=== PATIENT | male | born 1955 | race Caucasian/White ===

== ENCOUNTER → 2021-07-11 | Outpatient (CLI) | payer MEDICARE ==
[~2021-07-11] MED LIST: ASPI325T6 PO; DIABETA 5MG5 MG/TAB PO; LANTUS100 U/ML SQ; LIPITOR 80MG80 MG PO; PLAVIX 75MG TAB75 MG PO; PRILOSEC 20MG20 MG PO; TOPROL XL 50MG50 MG PO; VITAMIN D31000 IU PO; ZESTRIL 5MG5 MG PO
[2021-07-11 19:57] LABS: COLLECTION METHOD CLEAN CATCH
[2021-07-11 20:06] LABS: PH 5 (5-8); SQUAMOUS EPITHELIAL None Seen /hpf (0-10); URINE APPEARANCE Cloudy (CLEAR/HAZY); URINE BACTERIA Rare /hpf (NONE SEEN); URINE BILIRUBIN Negative (NEGATIVE); URINE BLOOD Negative (NEGATIVE); URINE COLOR Yellow (YELLOW); URINE GLUCOSE 2+ (NEGATIVE); URINE KETONE Negative (NEGATIVE); URINE LEUKOCYTE ESTERASE 2+ (NEGATIVE); URINE NITRATE Negative (NEGATIVE); URINE PROTEIN(semi-quant) 2+ (NEGATIVE); URINE UROBILINOGEN Negative (NEGATIVE)
== END ==
LOC: ZLAB.STJ 19:00
PROVIDERS: Internal Medicine
DX: N39.0 Urinary tract infection, site not specified (principal)

== ENCOUNTER 2022-07-16 13:14 | Inpatient (IN) | payer MEDICARE ==
[2022-07-16] VITALS (567 sets, daily range): BP systolic 154–186; BP diastolic 67–83; PULSE 68–74; TEMP 97.9–99.3; O2SAT 74–100
[~2022-07-16] VITALS: Ht 182.9 cm; Wt 79.3 kg
[2022-07-16 14:19] LABS: BASO # 0.1 K/mm3 (0.0-0.2); BASO % 0.8 % (0.0-2.0); EOS # 0.3 K/mm3 (0.0-0.7); GRAN # 8.3 K/mm3 (1.4-6.5); GRAN % 79.6 % (42.2-75.2); HEMATOCRIT 28.3 % (42.0-52.0); HEMOGLOBIN 9.2 g/dl (13.5-18.0); LYMPH # 0.8 K/mm3 (1.2-3.4); LYMPH % 7.9 % (20.0-51.0); MEAN CELL VOLUME 88 fl (80.0-100.0); MEAN CORPUSCULAR HEMOGLOBIN 29 pg (27-31); MEAN CORPUSCULAR HGB CONC 33 g/dl (33.0-37.0); MEAN PLATELET VOLUME 11.5 fl (7.4-10.4); MONO # 0.9 K/mm3 (0.1-0.6); MONO % 8.3 % (1.7-9.3); PLATELET COUNT 179 K/mm3 (130-400); RED BLOOD COUNT 3.22 M/mm3 (4.20-5.60); REDCELL DISTRIBUTION WIDTH-CV 15.1 % (11.5-14.5)
[2022-07-16] MEDS ORDERED: FLOMAX 0.40.4 MG/CAP PO (15:36)
[2022-07-16] MEDS ORDERED: WELLBUTRIN SR150 M1 PO (15:38)
[2022-07-16] MEDS ORDERED: ASPIRIN 81M81 MG/TA2 PO (15:38)
[2022-07-16] MEDS ORDERED: NEURONTIN400 MG/CAP PO (15:39)
[2022-07-16] MEDS ORDERED: ULTRAM 50MG TAB50 MG PO (15:39)
[2022-07-16] MEDS ORDERED: VITAMIN D31000 I1 PO (15:40)
[2022-07-16] MEDS ORDERED: PEPCID 20MG TAB20 MG PO (15:40)
[2022-07-16] MEDS ORDERED: ZYRTEC 10MG10 MG PO (15:41)
[2022-07-16] MEDS ORDERED: VITAMINC1000TA (15:41)
[2022-07-16] MEDS ORDERED: HUMALOG100 U/ML SQ (15:42)
[2022-07-16] MEDS ORDERED: BASAGLAR K100 UNIT/1 SQ (15:42)
[2022-07-16] MEDS ORDERED: TUMS500 MG (15:43)
[2022-07-16 15:45] LABS: ALBUMIN 2.6 gm/dL (3.4-4.8); BILIRUBIN,TOTAL 0.3 mg/dL (0.2-1.2); CALCIUM 8.5 mg/dL (8.4-10.2); CREATININE, serum 3.05 mg/dL (0.72-1.25); POTASSIUM 5.1 mmol/L (3.5-4.5); TOTAL PROTEIN 6.1 gm/dL (6.2-8.1)
[2022-07-16 16:39] LABS: PH 6.5 (5.0-8.5); URINE APPEARANCE Cloudy (CLEAR/HAZY); URINE COLOR Red (YELLOW); URINE GLUCOSE 3+ (NEGATIVE); URINE KETONE 1+ (NEGATIVE); URINE NITRATE Positive (NEGATIVE); URINE PROTEIN(semi-quant) 3+ (NEGATIVE)
[2022-07-16 16:40] LABS: COLLECTION METHOD CATHETER; URINE BLOOD 3+ (NEGATIVE)
[2022-07-16 16:44] LABS: SQUAMOUS EPITHELIAL None Seen /hpf (0-10); URINE BACTERIA None Seen /hpf (NONE SEEN); URINE RBC >50 /hpf (0-2)
[2022-07-16 21:02] LABS: HEMATOCRIT 30.8 % (42.0-52.0)
[2022-07-17] VITALS (1060 sets, daily range): BP systolic 71–167; BP diastolic 47–94; PULSE 53–70; TEMP 97.8–98.3; O2SAT 75–100
[2022-07-17 03:09] LABS: HEMATOCRIT 28.8 % (42.0-52.0); HEMOGLOBIN 9.3 g/dl (13.5-18.0)
[2022-07-17 06:00] LABS: BASO # 0.1 K/mm3 (0.0-0.2); BASO % 0.8 % (0.0-2.0); EOS # 0.5 K/mm3 (0.0-0.7); EOS % 4.4 % (0.0-4.0); GRAN # 8.6 K/mm3 (1.4-6.5); GRAN % 77.2 % (42.2-75.2); LYMPH % 9.4 % (20.0-51.0); MEAN CELL VOLUME 90 fl (80.0-100.0); MEAN CORPUSCULAR HGB CONC 32 g/dl (33.0-37.0); MEAN PLATELET VOLUME 11.3 fl (7.4-10.4); MONO # 0.9 K/mm3 (0.1-0.6); MONO % 7.9 % (1.7-9.3); PLATELET COUNT 194 K/mm3 (130-400); RED BLOOD COUNT 3.22 M/mm3 (4.20-5.60); REDCELL DISTRIBUTION WIDTH-CV 14.9 % (11.5-14.5)
[2022-07-17 06:06] LABS: HEMATOCRIT 29.1 % (42.0-52.0); HEMOGLOBIN 9.2 g/dl (13.5-18.0); MEAN CORPUSCULAR HEMOGLOBIN 29 pg (27-31)
[2022-07-17 06:19] LABS: CALCIUM 8.8 mg/dL (8.4-10.2); CREATININE, serum 2.86 mg/dL (0.72-1.25); MAGNESIUM 1.7 mg/dL (1.6-2.6); POTASSIUM 4.7 mmol/L (3.5-4.5)
[2022-07-17 09:10] LABS: HEMATOCRIT 29.1 % (42.0-52.0); HEMOGLOBIN 9.5 g/dl (13.5-18.0)
--- NOTE | 2022-07-17 09:49 | NUR ---
SW met with patient to complete intake. Patient reports that he lives at home with his Chapis ([phone]) in [place]. 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 Patient denies any home oxygen needs. PCP is Dr. Schreiber and they utilize [facility] in [place]. Phone call made to the Chapis. She states that the patient is indpendent with his ADL's and has had no issues up until this point leaving him at home alone despite his dx of Dementia. She works in , but often checks in on him and gets him set up for his day prior to leaving for work. Chapis confirms that they do not have any home health services at this time. Chapis also states that the patient does have a DPOA-HC established, listing her as the primary agent and their children as secondary agents. Chapis states that their son is planning on coming to stay with the patient for a few weeks at their home after this discharge. PT/OT ordered and will await their evals.
[2022-07-17 15:47] LABS: HEMATOCRIT 27.6 % (42.0-52.0); HEMOGLOBIN 8.9 g/dl (13.5-18.0)
--- NOTE | 2022-07-17 16:18 | NUR ---
1610 CALL TO NICK VARMA UPDATING ON RECORDS RECIEVED FROM PCP ON LABS REQUESTED. VERBALLY TOLD NICK VALUES. NICK STATED TO PLACE RECORDS ON PT CHART. NO NEW ORDERS.
[2022-07-17 17:41] LABS: CALCIUM 8.6 mg/dL (8.4-10.2); CREATININE, serum 2.89 mg/dL (0.72-1.25); POTASSIUM 4.8 mmol/L (3.5-4.5)
--- NOTE | 2022-07-17 17:46 | NUR ---
1745 REPORT TO [facility]. PT MOVING TO ROOM 323.
--- NOTE | 2022-07-17 18:05 | NUR ---
PATIENT ARRVIED FROM ICU IN STABLE CONDITION. PATIENT DENIES ANY NEEDS OR COMPLAINTS AT THIS TIME. THIS RN ONLY ASSISTED TO SETTLE PATIENT. PATIENT ANSWERS ORIENTATION QUESTIONS CORRECTLY, AND APPEARS TO BE IN A PLEASANT MOOD AT THIS TIME. PATIENT TURNED, OPEN WOUND TO SACRUM, SEEMS TO BE HEALING, NEW MEPILEX APPLIED. OZUNA PATENT AND DRAINING, HEMATURIA WITH BLOOD CLOTS PRESENT. R HEALED BKA. CALL LIGHT WITHIN REACH. BED ALARM ON.
--- NOTE | 2022-07-17 18:38 | NUR ---
1750 PT TRANSFERED TO MEDICAL FLOOR ROOM 323. RECIEVING NURSE AT BEDSIDE WHEN PT ARRIVED.
--- NOTE | 2022-07-17 20:00 | NUR ---
Patient alert but confused, head to toe assessment done, see shift assessment, denies pain or discomfort, on oxygen at 2LPM via nasal prong, mepilex to sacral CDI, repositioned every 2 hours, with curiel catheter draining well, denies further needs, call light and personal items within reach, will continue to monitor.
[2022-07-17 20:21] LABS: CALCIUM 8.5 mg/dL (8.4-10.2); CREATININE, serum 2.95 mg/dL (0.72-1.25); POTASSIUM 4.4 mmol/L (3.5-4.5)
--- NOTE | 2022-07-17 20:42 | NUR ---
Talked to Cate, the Pa, ordered to hold the scheduled 2100 metoprolol d/t patient's HR is low.
[2022-07-18] VITALS (10 sets, daily range): BP systolic 144–172; BP diastolic 54–83; PULSE 59–68; TEMP 97.6–98.9
--- NOTE | 2022-07-18 06:17 | NUR ---
Patient's blood sugar is 74mg/dl, orange juice given, will continue to monitor.
[2022-07-18 06:45] LABS: BASO # 0.1 K/mm3 (0.0-0.2); BASO % 1.1 % (0.0-2.0); EOS # 0.5 K/mm3 (0.0-0.7); GRAN # 5.3 K/mm3 (1.4-6.5); GRAN % 70.7 % (42.2-75.2); LYMPH # 0.9 K/mm3 (1.2-3.4); LYMPH % 11.9 % (20.0-51.0); MEAN CELL VOLUME 88 fl (80.0-100.0); MEAN CORPUSCULAR HGB CONC 32 g/dl (33.0-37.0); MEAN PLATELET VOLUME 11.6 fl (7.4-10.4); MONO # 0.7 K/mm3 (0.1-0.6); PLATELET COUNT 193 K/mm3 (130-400); RED BLOOD COUNT 2.96 M/mm3 (4.20-5.60); REDCELL DISTRIBUTION WIDTH-CV 15.1 % (11.5-14.5)
[2022-07-18 06:49] LABS: HEMATOCRIT 26.1 % (42.0-52.0); HEMOGLOBIN 8.4 g/dl (13.5-18.0); MEAN CORPUSCULAR HEMOGLOBIN 28 pg (27-31)
[2022-07-18 07:02] LABS: CALCIUM 8.6 mg/dL (8.4-10.2); CREATININE, serum 2.78 mg/dL (0.72-1.25); POTASSIUM 4.4 mmol/L (3.5-4.5)
--- NOTE | 2022-07-18 08:00 | NUR ---
UPON ENTERING ROOM PATIENTS IV WAS PARTIALLLY OUT. PATIENT STATED HE ATTEMPTED TO PULL OUT IV BECAUSE HE "DIDNT NEED IT." PATIENT HOWEVER AGREED TO ALLOW RN TO REPLACE.
[2022-07-18 12:40] LABS: HEMATOCRIT 28.4 % (42.0-52.0); HEMOGLOBIN 9.1 g/dl (13.5-18.0)
--- NOTE | 2022-07-18 13:25 | NUR ---
THIS RN RECIEVED A PHONE CALL FROM [facility] THAT UPON ENTERING THE ROOM HARRIS WAS FOUND ON THE FLOOR. PATIENT ASSISTED BACK TO BED BY THIS RN, ANOTHER RN AND [facility]. CALL PLACED TO MD, NO ANSWER AT THIS TIME. WILL REATTEMPT. VITALS TAKEN AND STABLE. PATIENT HAS VISIBLE ABRASION TO MID BACK, L CAMPBELL, AND TINY SPOT OF ABRASIAN TO BACK OF HEAD. PATIENT STATES HIS HEAD HURTS SOMEWHT BUT "I DONT NEED NO DOCTOR." PATIENT WAS LAST SEEN IN CHAIR, WHERE HE WAS PUT BY PHYSICAL THERAPY. NO CHAIR ALARM ON. PATIENT DOES HAVE FALL RISK SIGNS AT DOOR, WRIST BAND AND YELLOW GOWN AND SOCKS ON WELL BEFORE FALL. PATIENT NOW RESTING IN BED. BED ALARM ON, CALL LIGHT WITH IN REACH.
--- NOTE | 2022-07-18 14:45 | NUR ---
STORE RECEIVING SPECIALIST AWARE.
--- NOTE | 2022-07-18 15:00 | NUR ---
PATIENTS FAMILY ARRIVED, AND SON. UPDATED ON RECENT FALL AND WHAT WE ARE DOING NOW. WHILE THIS RN WAS SPEAKING WITH THE FAMILY MEMBERS, PATIENT STATED "ILE TELL YA WHAT HAPPENED, I HEARD ALL OF YOU CACKLING DOWN THE NICOLE LIKE A BUNCH OF FUCKING HENS, AND I DECIDED I WAS GOING TO GET UP!" PER PATIENTS , HE HAS BEEN ON AND OFF WITH CONFUSION SINCE HIS R BKA PROCEDURE LAST YEAR. FAMILY AT BEDSIDE. PATIETN RESTING IN BED, BED ALARM ON.
--- NOTE | 2022-07-18 16:37 | NUR ---
PATIENT AWAKE AND ALERT, RESTING IN BED. BED ALARM ON. PATIENT DENIES ANY NEEDS OR COMPLAINTS AT THIS TIME.
--- NOTE | 2022-07-18 18:31 | NUR ---
PATIENT REFUSING TO BLADDER SCANNED. WE ARE AT THE FIVE HOUR KALA SINCE OZUNA DISCONTINUED.
[2022-07-18 18:39] LABS: HEMOGLOBIN 10.2 g/dl (13.5-18.0)
[2022-07-18 18:40] LABS: HEMATOCRIT 32.1 % (42.0-52.0)
--- NOTE | 2022-07-18 21:17 | NUR ---
Patient alert with periods of confusion, assessed around this time, knows his date of , knows where he's at and doesn't know why he's here at the hospital, denies pain or discomfort, At 2109 called Cate the PA, d/t patient unable to void for 8 hours, bladder scanned and showed 510ml but unable to get a hold of her, Cate called back at 2126 and got an order for straight cath and wait for four hours and bladder scan again, patient wanted to try to void and finally voided 100ml and this nurse straight cath him and had 500ml urine out, mepilex dressing to bottom CDI, patient had a small bm, denies further needs, call light and personal items within reach, fall precautions in place.
--- NOTE | 2022-07-18 23:53 | NUR ---
Called Cate, the PA d/t patient's blood pressure is 172/54, manual is 170/80, she noted about it, no new orders received and will continue to monitor.
[2022-07-19] VITALS (11 sets, daily range): BP systolic 120–202; BP diastolic 49–73; PULSE 61–86; TEMP 97.3–101.4
[2022-07-19 00:33] LABS: HEMATOCRIT 26.5 % (42.0-52.0); HEMOGLOBIN 8.5 g/dl (13.5-18.0)
--- NOTE | 2022-07-19 02:21 | NUR ---
Bladder scanned the patient and it was 286ml, Cate the PA informed, and she noted it, no new orders received at this time.
--- NOTE | 2022-07-19 06:31 | NUR ---
Bladder scanned patient and it was 672ml, called Dr. Boland and informed her. Received an order to straight cath him again.
--- NOTE | 2022-07-19 06:45 | NUR ---
PATIENT IS ASLEEP, RESTING IN BED. BED ALARM ON, CALL LIGHT AND URINAL WITHIN REACH. DOOR REMAINS OPEN.
[2022-07-19 06:48] LABS: BASO # 0.1 K/mm3 (0.0-0.2); BASO % 1.1 % (0.0-2.0); EOS # 0.5 K/mm3 (0.0-0.7); EOS % 7.7 % (0.0-4.0); GRAN # 4.6 K/mm3 (1.4-6.5); GRAN % 70.2 % (42.2-75.2); LYMPH # 0.8 K/mm3 (1.2-3.4); LYMPH % 12.6 % (20.0-51.0); MEAN CELL VOLUME 88 fl (80.0-100.0); MEAN CORPUSCULAR HGB CONC 33 g/dl (33.0-37.0); MEAN PLATELET VOLUME 11.4 fl (7.4-10.4); MONO # 0.5 K/mm3 (0.1-0.6); MONO % 8.1 % (1.7-9.3); PLATELET COUNT 206 K/mm3 (130-400)
[2022-07-19 06:50] LABS: HEMATOCRIT 27.2 % (42.0-52.0); HEMOGLOBIN 8.9 g/dl (13.5-18.0); MEAN CORPUSCULAR HEMOGLOBIN 29 pg (27-31)
--- NOTE | 2022-07-19 06:57 | NUR ---
Straight cath the patient and had 600ml out.
[2022-07-19 07:06] LABS: CALCIUM 8.5 mg/dL (8.4-10.2); CREATININE, serum 2.48 mg/dL (0.72-1.25); POTASSIUM 4.6 mmol/L (3.5-4.5)
--- NOTE | 2022-07-19 08:30 | NUR ---
PATIENT AWAKE AND ALERT, SITTING UP IN BED EATING. BED ALARM ON. PATIENT DENIES ANY NEEDS OR COMPLAINTS AT THIS TIME. CALL LIGHT WITHIN REACH.
--- NOTE | 2022-07-19 09:51 | NUR ---
THIS RN ASSISTED PHYSICAL THERAPY WITH A BED TO COMMODE TRANSFER, AND THEN A COMMODE TO BED TRANSFER. PATIENT WAS ARGUMENTATIVE ENTIRE TIME. EACH TIME PHYSICAL THERAPY MADE A SUGGESTION PATIENT WOULD EITHER STATE THAT HE DOESNT USE A WALKER AT HOME ALL WITH TRANSFER, OR STATED "THIS THING IS GOING TO KILL ME," ANYTIME WE SUGGEST HE USE THE WALKER FOR SUPPORT. CHRISTA WAS A 2 PRESON MAX ASSIST FOR TRANSFERS WITHOUT HIS PROSTHETIC, EVEN TO STAND AND PIVOT TRANSFER. PATIENT DID NOT WANT TO GET INTO CHAIR TODAY TO PUT ON HIS PROSTHETIC LEG. PATIENT NOW RESTING IN BED. NO NEEDS AT THIS TIME. BED ALARM ON.CALL LIGHT WITHIN REACH.
--- NOTE | 2022-07-19 10:00 | NUR ---
PATIENT REQUESTING TO KNOW IF HE IS GOING TO BE DISCHARGED TODAY. I INFORMED THE PATIENT IT DEPENDS ON HOW HE IS DOING, AND AT THIS TIME WE ARE MONIOTORING HIS URINE RETENTION. WHEN ASKED, PATIENT STATED HE DOES NOT FEEL THE URGE TO PEE, AND THEN STATED "WHY DOES IT MATTER, THEY ALREADY ROTO ROOTED ME THIS MORNING!" AGAIN TRIED TO EDUCATE THE PATIENT THAT SINCE HE WAS UNABLE TO NATURALLY VOID TO EMTPY HIS BLADDER AFTER 8 HOURS IT WAS IMPORTANT FOR US TO ASSIST, WHICH THE NIGHT NURSE DID WITH HIS PERMISSION. PATIENT OPENLY DISAGREES. PATIENT RESTING IN BED, CALL LIGHT WITHIN REACH, BED ALARM ON.
[2022-07-19 12:54] LABS: HEMATOCRIT 30.3 % (42.0-52.0); HEMOGLOBIN 9.6 g/dl (13.5-18.0)
--- NOTE | 2022-07-19 14:30 | NUR ---
16 F OZUNA CATHETER PLACED WITH NO ISSUES. PATIENT TOLERATED WELL. ONCE OZUNA WAS INSERTED, CLOUDY YELLOW URINE BEGAN TO DRAIN. OZUNA CATHETER INSERTED USING PROP TECHNIQUE. PATIENT REPOSITIONED, BED ALARM ON, CALL LIGHT WITH IN REACH. PATIENT DENIES ANY NEEDS OR COMPLAINTS AT THIS TIME.
--- NOTE | 2022-07-19 14:59 | NUR ---
ABOUT 15 MINUTES AFTER INSERTION, THIS RN ROUNDED TO CHECK ON PATIENT, PATIENT STATED HE WAS HAVING SOME DISCOMFORT. UPON CHECKING OZUNA CATHETER, NEAR THE PORT AREA LOOKED TO BE BACKED UP WITH VERY THICK CLOUDY URINE. HAD ENVIRONMENTAL QUALITY ANALYST CHECK WELL. UPON FLUSHING CATHETER, MORE CLOUDY URINE WAS ABLE TO DRAIN. PATIENT AWARE AND INFORMED TO NOTIFY RN IF HE FEELS ANY DISCOMFORT AGAIN, AND WE WILL CONTINUE TO MONITOR AND CHECK TO ENSURE OUTPUT. WILL INFORM
--- NOTE | 2022-07-19 16:28 | NUR ---
PATINET SEEMS TO BE INCONTINENT OF STOOL. LARGE BOWEL MOVEMENT SOLID STOOL WELL LOOSE. BED CHANGE COMPLETED. KEISHA CARE AND CATHETER CARE PROVIDED. NEW STAT LOCK PLACED WELL NEW MEPILEX TO SACRUM. PATIENT HAS TRIED TWICE TO GET OUT OF BED D/T WANTING TO USE THE TOILET, HOWEVER HAS USUALLY ALREADY HAD AN ACCIDENT IN BED.
--- NOTE | 2022-07-19 16:31 | NUR ---
PATIENT NOW RESTING COMFORTABLY IN BED. PATIENT DENIES ANY NEEDS OR COMPLAINTS AT THIS TIME. OZUNA PATENT AND DRAINING. BED ALARM ON, CALL LIGHT WITHIN REACH.
--- NOTE | 2022-07-19 17:15 | NUR ---
PATIENT AWAKE, ATTEMPTING TO GET OUT OF BED. UPON ENTERING ROOM I NOTICED PATIENT HAD A BOWEL MOVEMENT AGAIN. MACHINE RIGGER ASSITED TO CLEAN UP. KEISHA CARE AGAIN PROVIDED. STAT LOCK FOR OZUNA HAD TO BE CHANGED. TOOK AWHILE TO CLEAN AND REPOSITION PATIENT HIS MENTATION HAS CHANGED. PATIENT NO LONGER FOLLOWING COMMANDS WELL. SOME OBVIOUS TREMORS NOTED. WHEN DINNER ARRIVED PATIENT WAS UNABLE TO HOLD ANY UTENSIL TO FEED HIMSELF. PATIENT SITS WITH HIS EYES CLOSED. ONLY OCCASIONALLYU OPENING THEM WHEN SPOKEN TO. PATIENT FOR MOST OF DAY WAS FEEDING HIMSELF EACH MEAL, WITH NO ISSUES, EASY TO AROUSE IF SLEEPING AND NORMALLY AWAKE AND WATCHING TV. STATUS CHANGE. WILL NOTIFY MD.
[2022-07-19 18:36] LABS: HEMATOCRIT 29.9 % (42.0-52.0); HEMOGLOBIN 9.6 g/dl (13.5-18.0)
[2022-07-19 18:37] LABS: PH 5.5 (5.0-8.5); URINE APPEARANCE Cloudy (CLEAR/HAZY); URINE BLOOD 3+ (NEGATIVE); URINE COLOR Yellow (YELLOW); URINE GLUCOSE Negative (NEGATIVE); URINE KETONE TRACE (NEGATIVE); URINE NITRATE Negative (NEGATIVE); URINE PROTEIN(semi-quant) 3+ (NEGATIVE); URINE UROBILINOGEN 0.2 E.U/dL (0.2-1.0)
[2022-07-19 18:40] LABS: URINE BACTERIA Rare /hpf (NONE SEEN); URINE RBC >50 /hpf (0-2)
[2022-07-19 19:04] LABS: COLLECTION METHOD CATHETER
--- NOTE | 2022-07-19 20:00 | NUR ---
PATIENT IS VERY CONFUSED, ORIENTED TO PERSON ONLY. PATIENT IS DROWSY, DIAPHORETIC, AND HOT TO TOUCH. TEMP 101.4, PRN TYLENOL GIVEN WITH HS MEDS. PATIENT HYPOXIC IN THE LOW 80'S ON RA. APPLIED 02 @ 2L WITH SATS NOW AT 90%. ALL OTHER VSS ON TELE. PATIENT INCONTIENT OF MUCUS WITH SLIGHT BLOOD TINGED STOOL. 2 MAX ASSIST TO GET CLEANED UP, COMPLETE BED CHANGE AND REPOSITIONED TO COMFORT. NOTED STAGE II COCCYX SORE THAT IS SHALINI, APPLIED PRESSURE DSG. OZUNA TO DD WITH MOD AMOUNTS OF HAZY URINE WITH SEDIMENT. SCD'S OFF DUE TO AGGITATION IT CAUSES HIM. LEFT HAND IV TO INT. HEAD TO TOE ASSESSMENT COMPLETE. PATIENT HAS HX OF RIGHT BKA, HEALED. HIGH FALL RISK. BED ALARM ON AND CALL LIGHT IN REACH. HS BS WAS 138, NO SSI REQUIRED. RT NOW AT BEDSIDE
--- NOTE | 2022-07-19 21:00 | NUR ---
RT REPORTS PATIENT NOW INCREASED TO 3L PER NC TO KEEP SATS ABOVE 92%. PATIENT HAD ANOTHER INCONTINENT, MUCUS STOOL HOWEVER UNABLE TO OBTAIN SAMPLE STOOL WAS NEARLY ALL ABSORBED INTO CHUCKS PAD. HOSPITALIST AWARE.
[2022-07-20] VITALS (12 sets, daily range): BP systolic 110–132; BP diastolic 42–56; PULSE 63–78; TEMP 98.1–98.7
--- NOTE | 2022-07-20 00:15 | NUR ---
PATIENT FOUND IN A X-LARGE, LOOSE, FOUL SMELLING STOOL THAT WAS POOLED BETWEEN HIS LEGS. PATIENT HAD STOOL FROM HEAD TO TOE AND HAD FLUNG SOME STOOL ON THE FLOOR. PATIENT REQUIRED A 2 MAX BED BATH WITH COMPLETE BED CHANGE. STOOL SAMPLE COLLECTED AND SENT TO LAB.
[2022-07-20 07:02] LABS: HEMATOCRIT 26.5 % (42.0-52.0); HEMOGLOBIN 8.4 g/dl (13.5-18.0); MEAN CELL VOLUME 91 fl (80.0-100.0); MEAN CORPUSCULAR HEMOGLOBIN 29 pg (27-31); MEAN CORPUSCULAR HGB CONC 32 g/dl (33.0-37.0); PLATELET COUNT 174 K/mm3 (130-400); RED BLOOD COUNT 2.92 M/mm3 (4.20-5.60); REDCELL DISTRIBUTION WIDTH-CV 15.2 % (11.5-14.5)
[2022-07-20 07:12] LABS: CALCIUM 7.9 mg/dL (8.4-10.2); CREATININE, serum 3.24 mg/dL (0.72-1.25); POTASSIUM 4.7 mmol/L (3.5-4.5)
[2022-07-20 07:49] LABS: BAND 65 % (0-10); METAMYELOCYTE 4 % (0-0)
[2022-07-20 07:50] LABS: BURR CELLS 2+; EOSINOPHIL 8 % (0-4); LYMPHOCYTE 4 % (20.0-51.0); NEUTROPHILS 12 % (42.0-75.2); PLATELET ESTIMATE NORMAL (NORMAL)
[2022-07-20 07:51] LABS: ANISOCYTOSIS 1+
--- NOTE | 2022-07-20 08:00 | NUR ---
Pt sleepy, he does wake easily, but quickly falls back asleep. He does grumble and complain when I do wake him. Pt was incontinent of stool during shift change. Pt cleaned and changed. Bed alarm on
[2022-07-20 08:39] LABS: PATHOLOGY DIFF REVIEW OK
--- NOTE | 2022-07-20 09:58 | NUR ---
Gusset Folder attempted to meet with Patient at bedside, Patient presented with eyes closed and did not respond to prompts from SW. SW contacted Patient's in order to discuss discharge planning: Home Health v SNF.She stated that she will discuss the options with her children and follow-up with SW.
--- NOTE | 2022-07-20 10:15 | NUR ---
Pt initially refusing lab draw. PCT was able to talk with pt and got him to agree to labs. Pt also refused PT this morning
--- NOTE | 2022-07-20 10:30 | NUR ---
Pt is more awake now and is in a better mood. Repositioned pt and sat him up for breakfast. Pt has no complaints at this time, bed alarm on
[2022-07-20 11:41] LABS: CREATININE, serum 3.53 mg/dL (0.72-1.25); FRACTIONAL EXCRETION OF NA+ 0.74 %
[2022-07-20 12:12] LABS: HEMATOCRIT 26.3 % (42.0-52.0); HEMOGLOBIN 8.3 g/dl (13.5-18.0)
--- NOTE | 2022-07-20 14:00 | NUR ---
Pt continues to remain pleasent. Pt does continue to have liquid incontinent stools. José drsg changed as needed. Continue to reposition as he allows it. Bed alarm on
--- NOTE | 2022-07-20 17:00 | NUR ---
Pt arrived. Pt is more drowsy again as he was this am. When he does wake, he is irritable again as he was this morning. Pt not having any pain complaints. Output in curiel continues to be cloudy with sediment. Pt also continues to have incontinent stool. He does not notify us when he has gone
[2022-07-20 19:09] LABS: HEMOGLOBIN 7.7 g/dl (13.5-18.0)
--- NOTE | 2022-07-20 22:34 | NUR ---
AT THE BEGINNING OF THE SHIFT THE PT WAS VERY LETHARGIC AND REQUIRED REPEAT STIMULATION TO BE AROUSED. RN NOTIFIED ONCALL HOSPITALIST AND ORDERS WERE PLACED. AT THIS TIME PATIENT IS NOW ORIENTED AGAIN AND AWAKE. PT BEING SENT FOR CT AT THIS TIME
[2022-07-20 23:21] LABS: BASO % 0.4 % (0.0-2.0); EOS # 0.4 K/mm3 (0.0-0.7); EOS % 5.6 % (0.0-4.0); GRAN # 5.8 K/mm3 (1.4-6.5); GRAN % 73.4 % (42.2-75.2); HEMATOCRIT 25.1 % (42.0-52.0); LYMPH # 0.9 K/mm3 (1.2-3.4); LYMPH % 11.9 % (20.0-51.0); MEAN CELL VOLUME 90 fl (80.0-100.0); MEAN CORPUSCULAR HEMOGLOBIN 29 pg (27-31); MEAN CORPUSCULAR HGB CONC 32 g/dl (33.0-37.0); MEAN PLATELET VOLUME 11.3 fl (7.4-10.4); MONO # 0.7 K/mm3 (0.1-0.6); MONO % 8.3 % (1.7-9.3); PLATELET COUNT 184 K/mm3 (130-400); RED BLOOD COUNT 2.79 M/mm3 (4.20-5.60); REDCELL DISTRIBUTION WIDTH-CV 15.5 % (11.5-14.5)
[2022-07-20 23:23] LABS: ARTERIAL BLD GAS O2 SATURATION 95.2 % (92-100); ARTERIAL BLD GAS TCO2 CT 18.9; ARTERIAL BLOOD GAS HCO3 17.9 meq/L (22-26); ARTERIAL BLOOD GAS PCO2 33.5 mmHg (35-45); ARTERIAL BLOOD GAS PO2 76.9 mmHg (80-100); ARTERIAL BLOOD GAS pH 7.35 (7.35-7.45)
[2022-07-20 23:37] LABS: CALCIUM 8.1 mg/dL (8.4-10.2); CREATININE, serum 4.06 mg/dL (0.72-1.25); MAGNESIUM 1.7 mg/dL (1.6-2.6); POTASSIUM 4.2 mmol/L (3.5-4.5)
[2022-07-21] VITALS (10 sets, daily range): BP systolic 127–153; BP diastolic 49–76; PULSE 60–70; TEMP 97.9–99.5
--- NOTE | 2022-07-21 04:16 | NUR ---
0340 RN NOTIFIED CHIEF DEPUTY SHERIFF HOSPITALIST OF BLOOD PRESSURE 100/42 WITH A MAP OF 57. NO NEW ORDERS PLACED.
--- NOTE | 2022-07-21 06:17 | NUR ---
OVERNIGHT PATIENT WAS LETHARGIC FOR MOST OF THE NIGHT, VITAL SIGNS NORMAL. PTS OXYGEN WAS TAKEN FROM 3L TO 2L, PT HAD ABG'S AND HEAD CT ORDERED DUE TO THE LETHARGY. PT WAS CHANGED FROM INCONTIENCE EPISODE OF STOOL X3. PT DENIES ANY PAIN. AT THIS TIME THE PATIENT IS ALERT AND ORIENTED X4 AND IS UP DRINKING COFFEE WITH NO NEW REQUESTS AT THIS TIME.
--- NOTE | 2022-07-21 07:24 | NUR ---
GLUCOSE PROTOCOL FOLLOWED FOR BG OF 62.
[2022-07-21 07:37] LABS: BASO % 0.4 % (0.0-2.0); EOS # 0.4 K/mm3 (0.0-0.7); EOS % 6.3 % (0.0-4.0); GRAN % 71.8 % (42.2-75.2); HEMATOCRIT 25.2 % (42.0-52.0); HEMOGLOBIN 7.8 g/dl (13.5-18.0); LYMPH # 0.9 K/mm3 (1.2-3.4); LYMPH % 12.5 % (20.0-51.0); MEAN CELL VOLUME 91 fl (80.0-100.0); MEAN CORPUSCULAR HEMOGLOBIN 28 pg (27-31); MEAN CORPUSCULAR HGB CONC 31 g/dl (33.0-37.0); MEAN PLATELET VOLUME 11.8 fl (7.4-10.4); MONO # 0.6 K/mm3 (0.1-0.6); MONO % 8.3 % (1.7-9.3); PLATELET COUNT 177 K/mm3 (130-400); RED BLOOD COUNT 2.76 M/mm3 (4.20-5.60); REDCELL DISTRIBUTION WIDTH-CV 15.5 % (11.5-14.5)
--- NOTE | 2022-07-21 07:42 | NUR ---
PT BG ON RECHECK WAS 57 FOUND THAT PT HAD ONLY EATEN 2 OF 4 GLUCOSE TABS PROVIDED EDUCATION OF IMPORTANCE OF EATING ALL OF MEDS GIVEN.
[2022-07-21 07:43] LABS: CALCIUM 8.3 mg/dL (8.4-10.2); CREATININE, serum 4.06 mg/dL (0.72-1.25); MAGNESIUM 1.8 mg/dL (1.6-2.6); POTASSIUM 4.1 mmol/L (3.5-4.5)
--- NOTE | 2022-07-21 10:39 | NUR ---
PT RESTING IN BED. AM MEDS GIVEN. BG STABLIZED AFTER BREAKFAST. WILL CONTINUE TO MONITOR WITH ROUTINE CHECKS. UP WITH THERAPY THIS AM. IV ABX GIVEN ORDERED.URINE IN OZUNA YELLOW HAZY. PT DENIES NEEDS AT THIS TIME.
--- NOTE | 2022-07-21 15:19 | NUR ---
Human Resources Vice President followed up with patient's , Chpais to secure preferences for SNF placement. Chapis advised preferences are 1)[facility] and 2)[facility]. SW faxed referrals to both. Dee at [facility] advised their DON declined referral as they do not feel they can meet patient's needs. JABARI spoke with both Dee, Php Wordpress Developer and SMITH Lombardi at [facility] who advised they can accept patient for a skilled stay as they have already been in contact with family about a respit stay at the end of the month. JABARI contacted Chapis to provide update. Chapis is agreeable to placement at [facility]. Discharge Plan: [facility] SNF
[2022-07-21 18:26] LABS: HEMATOCRIT 25.3 % (42.0-52.0)
--- NOTE | 2022-07-21 21:51 | NUR ---
Patient assessed at this time, has bouts of confusion head to toe assessment done, see shift assessment, denies pain or discomfort, IV infusing well on left hand, mepilex to bottom CDI, with curiel catheter draining clear yellow urine, call light and personal items within reach, fall precautions in place, bed alarm on.
[2022-07-22] VITALS (9 sets, daily range): BP systolic 145–168; BP diastolic 59–74; PULSE 59–70; TEMP 97.5–98.7
--- NOTE | 2022-07-22 05:16 | NUR ---
Patient's IV infiltrated, attempting to restart an IV but patient refused at this time.
--- NOTE | 2022-07-22 05:59 | NUR ---
Patient refusing lab draw at this time. telecommunications switch technician will try again later and see if he agrees.
[2022-07-22 07:10] LABS: CALCIUM 8.3 mg/dL (8.4-10.2); CREATININE, serum 4.33 mg/dL (0.72-1.25); MAGNESIUM 1.7 mg/dL (1.6-2.6); POTASSIUM 4.5 mmol/L (3.5-4.5)
[2022-07-22 07:21] LABS: BASO % 0.3 % (0.0-2.0); EOS # 0.5 K/mm3 (0.0-0.7); GRAN # 4.9 K/mm3 (1.4-6.5); GRAN % 74.8 % (42.2-75.2); LYMPH # 0.6 K/mm3 (1.2-3.4); LYMPH % 9.8 % (20.0-51.0); MEAN CELL VOLUME 89 fl (80.0-100.0); MEAN CORPUSCULAR HGB CONC 32 g/dl (33.0-37.0); MEAN PLATELET VOLUME 11.8 fl (7.4-10.4); MONO # 0.5 K/mm3 (0.1-0.6); MONO % 7.5 % (1.7-9.3); PLATELET COUNT 194 K/mm3 (130-400); RED BLOOD COUNT 2.82 M/mm3 (4.20-5.60); REDCELL DISTRIBUTION WIDTH-CV 15.4 % (11.5-14.5)
[2022-07-22 07:22] LABS: HEMATOCRIT 25.2 % (42.0-52.0); HEMOGLOBIN 8.1 g/dl (13.5-18.0); MEAN CORPUSCULAR HEMOGLOBIN 29 pg (27-31)
--- NOTE | 2022-07-22 08:00 | NUR ---
PATIENT IS MORE ALERT THAN PREVIOUS SHIFT. ORIENTED X2 WITH A HX OF DEMENTIA. PATIENT SITTING UP IN BED WITH BREAKFAST TRAY. FRUIT CULLER REPORTS PATIENT PULLED IV OUT LAST NIGHT AND REFUSED TO HAVE A NEW ONE. STUDENT NURSE WORKING WITH PATIENT TODAY AND INSTRUCTOR WERE ALLOWED TO RE-START NEW IV SITE PER PATIENT. IV FLUIDS INFUSING VIA PUMP INTO LEFT AC. OZUNA TO DD WITH MOD AMOUNT OF HAZY COLORED URINE NOTED. PATIENT ON IV ABX, SEE MAR. AM MEDS GIVEN. AM BS WAS 185, NO SSI. PATIENT TOLERATING ADA DIET. NO C/O N/V OR PAIN. HEAD TO TOE ASSESSMENT COMPLETE. HX OF RIGHT BKA, PROSTETIC AT BEDSIDE. 2 MAX ASSIST. HIGH FALL RISK. 02 @ 2L PER NC WITH SATS IN LOW 90'S, PATIENT FREQUENTLY TAKES OFF HIS OXYGEN AND REQUIRES EDUCATION OFTEN. PATIENT GETS GRUMPY WITH STAFF FROM TIME TO TIME AND CAN BE NON-COMPLIENT AT TIMES. ALL OTHER VSS ON TELE. NO OTHER NEEDS AT THIS TIME. STUDENT NURSE IN ROOM, SEE CHARTING. CALL LIGHT IN REACH. BED ALARM ON.
--- NOTE | 2022-07-22 08:50 | NUR ---
NEPHROLOGY ROUNDING AND NOW AT BEDSIDE.
--- NOTE | 2022-07-22 13:05 | NUR ---
PATIENT FOUND SLEEPING WITH HIS 02 OFF AGAIN. RE-APPLIED 02 @ 2L PER NC TO KEEP SATS ABOVE 92%. PATIENT DOES NOT LIKE WEARING HIS OXYGEN AND YELLED AT NURSE BUT THEN WENT RIGHT BACK TO SLEEP. WILL MONITOR.
--- NOTE | 2022-07-22 13:22 | NUR ---
PATIENT FOUND WITH 02 OFF AGAIN AND O2 SATS IN LOW 80'S. PATIENT WAS VERY DIFFICULT TO WAKE. PATIENT REFUSING TO LET NURSING PUT 02 ON AND STARTED YELLING AND HITTING AT STAFF. PATIENT REFUSING TO LET NURSE GIVE HIM IV ABX, INSULIN OR OTHER MEDS. PATIENT IS VERY AGGITATED AND REFUSED TO RECEIVE ANY MEDICAL TREATMENT. HOSPITALIST NOTIFIED. PATIENT IS CURRENTLY A FC BUT STATED TO NURSE AND CLOTH SPREADER SCREEN PRINTING THAT HE REFUSES TO RECEIVE TREATMENT. HOSPITALIST TALKING ABOUT CONSULTING PSYCH
--- NOTE | 2022-07-22 13:44 | NUR ---
CALLED PATIENT'S WHO IS GOING TO CALL THE PATIENT AND TALK TO HIM IN AN EFFORT TO GET HIM TO COOPERATE WITH THE MEDICAL TEAM.
--- NOTE | 2022-07-22 14:25 | NUR ---
AT BEDSIDE TO DISCUSS CODE STATUS AND PLAN OF CARE. PATIENT RAISING HIS VOICE AND CONTINUES TO REFUSE MEDICAL CARE. SEE PROVIDER NOTE.
--- NOTE | 2022-07-22 14:39 | NUR ---
Director Building faxed clinical updates to [employer]. SW collaborated with Hospitalist who may put in palliative consult. JABARI notified Celia MACHADO.
--- NOTE | 2022-07-22 15:47 | NUR ---
PATIENT'S IS NOW HERE AT BEDSIDE. AT BEDSIDE TO DISCUSS MEDICAL PLAN, CODE STATUS, AND PATIENT'S WILLINGNESS TO RECEIVE TREATMENT.
--- NOTE | 2022-07-22 16:02 | NUR ---
Jewel Setter notified by RN that Hospitalist met with patient and , Chapis and plan will be for skilled rehab placement at [facility] tomorrow. SW contacted Maria C at [facility] and updated her that discharge is planned for tomorrow. Maria C requested family be asked to provide transport if able. JABARI contacted Chapis and left a message. Discharge Plan: [facility]
--- NOTE | 2022-07-22 16:15 | NUR ---
PSYCH AT BEDSIDE TO EVAL AND TREAT. ALSO AT BEDSIDE.
--- NOTE | 2022-07-22 16:21 | NUR ---
Backer Up spoke with Chapis who did not think her providing transport would go well for patient as he would just expect to go home. JABARI contacted Maria C at [facility] who advised they can quill picking machine operator patient at 0900. JABARI notified patient's Chapis, Hospitalist, and RN.
--- NOTE | 2022-07-22 20:54 | NUR ---
Patient refused to take his meds and won't keep his oxygen on, still confused, alert, denies pain, call light and personal items within reach, fall precautions in place, bed alarm on.
--- NOTE | 2022-07-22 20:56 | NUR ---
Patient refused all his meds at this time, he verbalized " I don't want anything right now".
[2022-07-23] VITALS (7 sets, daily range): BP systolic 126–183; BP diastolic 61–86; PULSE 66–70; TEMP 97.6–98.7
--- NOTE | 2022-07-23 00:42 | NUR ---
Patient refuses to have his vitals taken, still won't wear his oxygen on.
--- NOTE | 2022-07-23 06:32 | NUR ---
Patient refused to have labs drawn, still doesn't want to keep his oxygen on, will report off to dayshift nurse.
--- NOTE | 2022-07-23 07:38 | NUR ---
Pt refuses lab draw at this time. Notified Gregorio Lugo NP.
--- NOTE | 2022-07-23 09:00 | NUR ---
Per student RN, pt states that he wants to "just and let my kids fight over my money." Notify bellows charger assembler and Gregorio Lugo NP. Upon speaking with pt, he does not repeat this information to this RN.
[2022-07-23 10:59] LABS: BASO # 0.1 K/mm3 (0.0-0.2); BASO % 0.6 % (0.0-2.0); EOS # 0.5 K/mm3 (0.0-0.7); EOS % 5.8 % (0.0-4.0); GRAN # 6.5 K/mm3 (1.4-6.5); HEMATOCRIT 29.2 % (42.0-52.0); HEMOGLOBIN 9.5 g/dl (13.5-18.0); LYMPH # 0.7 K/mm3 (1.2-3.4); LYMPH % 8.1 % (20.0-51.0); MEAN CELL VOLUME 87 fl (80.0-100.0); MEAN CORPUSCULAR HEMOGLOBIN 28 pg (27-31); MEAN CORPUSCULAR HGB CONC 33 g/dl (33.0-37.0); MONO # 0.6 K/mm3 (0.1-0.6); MONO % 6.9 % (1.7-9.3); PLATELET COUNT 260 K/mm3 (130-400); RED BLOOD COUNT 3.35 M/mm3 (4.20-5.60); REDCELL DISTRIBUTION WIDTH-CV 14.8 % (11.5-14.5)
--- NOTE | 2022-07-23 11:39 | NUR ---
0347 received from night baker at this time. This [facility] student nurse discussed plan of care and coordination with primary dayshift nurse, LIANET Miranda. 4537 assessment completed, see shift assessment. Patient denies pain at this time. Discussed plan of care, patient agreeable. All questions answered. Call light within reach. Will continue to monitor.
[2022-07-23 11:45] LABS: CALCIUM 8.9 mg/dL (8.4-10.2); CREATININE, serum 4.68 mg/dL (0.72-1.25); MAGNESIUM 1.8 mg/dL (1.6-2.6); POTASSIUM 5.2 mmol/L (3.5-4.5)
--- NOTE | 2022-07-23 11:53 | NUR ---
Notified Gregorio Lugo NP of critical CO2 14. No new orders at this time.
--- NOTE | 2022-07-23 13:00 | NUR ---
PT SLEEPING IN BED. BEDALARM ACTIVE.
--- NOTE | 2022-07-23 13:14 | NUR ---
0100- updated primary nurse LIANET Miranda regarding pt BP 183/81. No new interventions this time.
--- NOTE | 2022-07-23 15:02 | NUR ---
PT SCREENEED BY BETY. PT OK TO DC WITH SAFETY PLAN. YUDY WEST NOTIFED. LYNSEY BARBOZA NOTIFIED AND UPDATED ON DC TOMORROW.
--- NOTE | 2022-07-23 15:23 | NUR ---
[facility] psych eval complete. Pt cleared from level 1 monitoring. Gregorio Lugo NP notified.
--- NOTE | 2022-07-23 15:25 | NUR ---
Pump Machine Operator arrived on the unit and was advised patient was refusing his labs and also making comments about wanting to . Hospitalist rounded on patient and determined he was not ready for discharge today. RN advised patient requested a shower and then would be agreeable to do labs. After patient had a shower, he was compliant with labs and SW observed him walking with therapy in the baird. Hospitalist consulted Dr. Deal with Psychiatry and a new medication was added for patient. Patient also had screen completed with [facility] and it was determined he did not need to be in suicide precautions or have a sitter. JABARI contacted [facility] [facility] and spoke with both SMITH Lombardi and Edita Pump Machine Operator. SW faxed clinical updates. At this time, [facility] still intends to accept patient tomorrow and would like a call after rounds to establish transportation time. JABARI contacted patient's , Chapis and provided update. Discharge Plan: [facility]
--- NOTE | 2022-07-23 21:24 | NUR ---
Patient alert but confused, initially he doesn't want to have his blood sugar checked but finally agreed after explaining to him the importance of such, took his pills and allowed this nurse to give his insulin, still refusing to wear his oxygen on, Dr. Carcamo was informed that he pulled out his IV and she's okay for it and received an order to DC the tele, head to toe assessment done, see shift assessment, denies pain or discomfort, call light and personal items within reach, fall precautions in place.
--- NOTE | 2022-07-24 03:15 | NUR ---
Patient had incontinent stools at this time, requested to take a shower, wheeled to shower room and took a shower.
[2022-07-24 03:48] VITALS: BP 169/65; PULSE 69; TEMP 97.5
--- NOTE | 2022-07-24 03:50 | NUR ---
Patient got back from shower room.
--- NOTE | 2022-07-24 06:10 | NUR ---
Patient resting in bed at this time, eyes closed, still won't keep his oxygen on, respirations even and unlabored, will report off to dayshift nurse.
[2022-07-24 06:54] LABS: BASO % 0.5 % (0.0-2.0); EOS # 0.4 K/mm3 (0.0-0.7); EOS % 5.1 % (0.0-4.0); GRAN # 6.4 K/mm3 (1.4-6.5); GRAN % 76.6 % (42.2-75.2); LYMPH # 0.8 K/mm3 (1.2-3.4); MEAN CELL VOLUME 87 fl (80.0-100.0); MEAN CORPUSCULAR HGB CONC 33 g/dl (33.0-37.0); MEAN PLATELET VOLUME 11.5 fl (7.4-10.4); MONO # 0.7 K/mm3 (0.1-0.6); MONO % 8.1 % (1.7-9.3); PLATELET COUNT 257 K/mm3 (130-400); RED BLOOD COUNT 3.07 M/mm3 (4.20-5.60); REDCELL DISTRIBUTION WIDTH-CV 14.9 % (11.5-14.5)
[2022-07-24 06:56] LABS: HEMATOCRIT 26.6 % (42.0-52.0); HEMOGLOBIN 8.8 g/dl (13.5-18.0); MEAN CORPUSCULAR HEMOGLOBIN 29 pg (27-31)
[2022-07-24 06:58] LABS: CALCIUM 8.7 mg/dL (8.4-10.2); CREATININE, serum 4.88 mg/dL (0.72-1.25); POTASSIUM 4.6 mmol/L (3.5-4.5)
--- NOTE | 2022-07-24 07:21 | NUR ---
RECEIVED REPORT FROM [facility].
--- NOTE | 2022-07-24 08:06 | NUR ---
PATIENT ALERT TO SELF UPON ARRIVAL TO ROOM. PATIENT DENIES ANY PAIN AT THIS TIME. PARTIAL ASSESSMENT PERFORMED. OZUNA TO DD WITH YELLOW/CLOUDY URINE. STAT LOCK BROKEN. NEW ONE PLACED TO RIGHT THIGH. PATIENT REFUSED TO ALLOW THIS NURSE TO PERFORM SKIN ASSESSMENT ON POSTERIOR ASPECT OF BODY. STUDENT NURSE OBTAINING VITALS AND WILL ADMINISTER MEDS WITH PRECEPTOR. PATIENT RESTING IN BED. CALL LIGHT IN REACH.
[2022-07-24 08:15] VITALS: BP 157/57; PULSE 64; TEMP 97.5
[2022-07-24 09:00] VITALS: BP_SYST 157
--- NOTE | 2022-07-24 09:15 | NUR ---
Late Entry: Discussed pt during rounding yesterday with Vianey WEST. Due to depression/agitation it was requested to hold off on consult until Psych saw pt. Will wait until further need for consult.
--- NOTE | 2022-07-24 09:20 | NUR ---
0815 updated primary nurse LIANET Watt of pt BP.
[2022-07-24] MEDS ORDERED: DIFLUCAN 100MG100 MG PO (09:50)
[2022-07-24] MEDS ORDERED: NORVASC 10MG10 MG PO (09:51)
[2022-07-24] MEDS ORDERED: TOPROL XL 25MG25 MG PO (09:51)
[2022-07-24] MEDS ORDERED: ZOLOFT 50MG50 MG PO (09:52)
[2022-07-24] MEDS ORDERED: DESYREL 50MG50 MG PO (09:54)
--- NOTE | 2022-07-24 10:51 | NUR ---
1333 report recieved from night coordinator RN. This [employer] student nurse discussed plan of care and care coordination with primary dayshift nurse LIANET Watt. 1152 Assessment completed, see shift assessment. Patient denies pain at this time. Discussed plan of care, patient agreeable. All questions answered. Call light within reach. All needs met at this time.
--- NOTE | 2022-07-24 11:23 | NUR ---
REPORT CALLED TO VENUS AT [facility]. PATIENT CLEANED UP, CATH CARE PROVIDED. PATIENT BELONGINGS GATHERED AND ESCORTED OUT WITH TRANSPORTER.
--- NOTE | 2022-07-24 15:18 | NUR ---
Web Site Admin attended clinical rounds with the team and patient to discharge to [facility] today. SW contacted Edita at [facility] and set transport time for 1100. SW faxed discharge orders. SW contacted [facility], to provide transport time. SW reviewed IM with [facility] over the phone and she gave SW permission to sign on her behalf. JABARI placed form in chart and provided copy in patient's discharge packet. Discharge Plan: [facility]
== END 2022-07-24 11:25 | DRG 689 ==
LOC: ICU 13:14 → SURG 07-17 18:28
PROVIDERS: Internal Medicine; Physician Assistant; Student in an Organized Health Care Education/Training Program; ADMIT Hospitalist
DX: N39.0 Urinary tract infection, site not specified (principal); A41.9 Sepsis, unspecified organism; G92.8 Other toxic encephalopathy; N17.0 Acute kidney failure with tubular necrosis; I13.0 Hypertensive heart and chronic kidney disease with heart failure and stage 1 through stage 4 chronic kidney disease, or unspecified chronic kidney disease; E87.20 Acidosis, unspecified; N18.4 Chronic kidney disease, stage 4 (severe); R45.851 Suicidal ideations; L89.150 Pressure ulcer of sacral region, unstageable; E11.65 Type 2 diabetes mellitus with hyperglycemia; I25.10 Atherosclerotic heart disease of native coronary artery without angina pectoris; J44.9 Chronic obstructive pulmonary disease, unspecified; K21.9 Gastro-esophageal reflux disease without esophagitis; E11.22 Type 2 diabetes mellitus with diabetic chronic kidney disease; I50.9 Heart failure, unspecified; F03.90 Unspecified dementia, unspecified severity, without behavioral disturbance, psychotic disturbance, mood disturbance, and anxiety; E11.51 Type 2 diabetes mellitus with diabetic peripheral angiopathy without gangrene; E78.5 Hyperlipidemia, unspecified; T42.6X5A Adverse effect of other antiepileptic and sedative-hypnotic drugs, initial encounter; B37.9 Candidiasis, unspecified; Y92.238 Other place in hospital as the place of occurrence of the external cause; F32.A Depression, unspecified; W18.39XA Other fall on same level, initial encounter; D64.9 Anemia, unspecified; E87.5 Hyperkalemia; F17.210 Nicotine dependence, cigarettes, uncomplicated; E11.649 Type 2 diabetes mellitus with hypoglycemia without coma; E11.622 Type 2 diabetes mellitus with other skin ulcer; Z51.5 Encounter for palliative care; Z89.511 Acquired absence of right leg below knee; Z79.4 Long term (current) use of insulin; Z95.1 Presence of aortocoronary bypass graft; Z88.8 Allergy status to other drugs, medicaments and biological substances; Z90.49 Acquired absence of other specified parts of digestive tract; Y93.89 Activity, other specified
CPT/HCPCS: J0690; J0696; J1100; J1815; J2405; J2543; J2704; J3010; J7030; J7120